=== PATIENT | female | born 1975 | race Asian ===

== ENCOUNTER 2016-09-14 17:03 | Emergency (ER) | payer MEDICAID ==
[~2016-09-14] VITALS: Ht 167.6 cm; Wt 68.0 kg
[2016-09-14] MEDS ORDERED: NKM (17:12)
[2016-09-14] MEDS ORDERED: TdaP Vaccine 0.5ml Syr IM ONE (17:15)
[2016-09-14] MEDS ORDERED: Bacitracin Oint UD TOPIC ONE (17:30)
[2016-09-14] MEDS ORDERED: Lidocaine 1% MPF 10mg/ml 5ml INJ ONE (17:30)
[2016-09-14] MEDS ORDERED: IBUPROFEN600 MG ORAL (18:06)
[2016-09-14] MEDS ORDERED: BACITRACIN1 APPLIC TOPIC (18:06)
[2016-09-14 18:19] VITALS: BP 131/77
--- NOTE | 2016-09-14 22:02 | Emergency Room Report ---
History of Present Illness General Chief Complaint: Laceration Source: Patient Present Illness HPI The patient is a 40-year-old female presenting with a laceration to the left hand which she sustained today while cutting plastic bags at home. The patient states that the knife slipped and entered the left hand around the index finger. The pain is described as a 10/10 dull/throbbing at the laceration site. Pt also reports numbness of the index and middle finger. Pt cleaned out wound at home with water. Pt unsure of last tetanus shot. Pt denies N, V, F, chills, any other symptoms. Allergies: Coded Allergies: No Known Allergies (Unverified , 09/14/16) Patient History Past Medical History: see triage record Pertinent Family History: none Last Menstrual Period: 08/30/2016 Now: No : 3 Para: 3 Reviewed Nursing Documentation: PMH: Agreed, PSxH: Agreed Nursing Documentation-PMH Past Medical History: No Stated History Review of Systems All Other Systems: negative except mentioned in HPI Physical Exam Vital Signs Date Time Temp Pulse Resp B/P Pulse Ox O2 Delivery O2 Flow Rate FiO2 09/14/16 17:07 98.2 10 20 135/82 96 Room Air Sp02 EP Interpretation: reviewed, normal General Appearance: no apparent distress, alert, GCS 15, non-toxic Head: normocephalic, atraumatic Eyes: bilateral eye PERRL, bilateral eye normal inspection ENT: hearing grossly normal, normal pharynx, no angioedema, normal voice Neck: full range of motion, supple/symm/no masses Musculoskeletal: back normal, digits/nails normal, gait/station normal, normal range of motion, tender - TTP over the L lateral hand inferior to 2nd MCP joint Neurologic: alert, oriented x3, responsive, motor strength/tone normal, sensory intact, normal gait, speech normal Psychiatric: judgement/insight normal, memory normal, mood/affect normal, no suicidal/homicidal ideation Skin: well hydrated, laceration - 2cm laceration to L hand inferior to 2nd MCPJ. No bleeding. Lymphatic: no adenopathy Procedures Laceration/Wound Repair Laceration/Wound Repair : Consent: Verbal Wound Location: upper extremity Wound's Depth, Shape: superficial Wound Length (cm): 2 Wound Explored: clean Irrigated w/ Saline (ccs): 200 Betadine Prep?: Yes Anesthesia: 1% Lidocaine Volume Anesthetic (ccs): 3 Wound Debrided: minimal Wound Repaired With: sutures Suture Size/Type: 5:0, proline Number of Sutures: 3 Sterile Dressing Applied?: Yes Splint Applied?: No Sling Applied?: No Patient Tolerated: Well Complications: None Medical Decision Making PA Attestation Dr. horton is my supervising physician. Patient management was discussed with my supervising physician Diagnostic Impression: Primary Impression: Laceration ER Course The patient is a 40-year-old female presenting with a laceration to the left hand which she sustained today while cutting plastic bags at home Ddx considered include but not limited to fracture, tendon/ligament injury, avulsion, nerve damage PE: Vitals WNL. NAD. TTP over the L lateral hand inferior to 2nd MCP joint. 2cm linear. Superficial. No bleeding. Full AROM of wrist and fingers. Decreased sensation to 2nd and 3rd digit. The wound was irrigated with normal saline and cleaned with betadine. A 27g needle was used to administer 3mL of lidocaine w.o epi for local anaesthesia. 3 sutures were placed with 5-0 Prolene. The wound was well approximated and the patient tolerated the procedure well. The wound was then cleaned and bacitracin was applied. A splint/sling was placed dc'ed home with prescription for motrin and bacitracin. ER precautions given and pt will return for suture removal Last Vital Signs Date Time Temp Pulse Resp B/P Pulse Ox O2 Delivery O2 Flow Rate FiO2 09/14/16 18:19 98.4 90 12 131/77 98 Room Air Status: improved Disposition: HOME, SELF-CARE Condition: Improved Scripts Bacitracin (Bacitracin Zinc) 15 Gm Oint...g. 1 APPLIC TOPIC TID, #15 GM Prov: TERSHANNENANCLEMENTINA P.A. 09/14/16 Ibuprofen* (MOTRIN*) 600 Mg Tablet 600 MG ORAL Q8H Y for For Pain, #30 TAB 0 Refills Prov: TERZIAN,CLEMENTINA P.A. 09/14/16 Referrals: NOT CHOSEN [facility]/,REFERRING (PCP) Patient Instructions: Laceration Care, Adult Additional Instructions: I discussed my findings with the patient. All questions and concerns have been answered. Treatment and medication compliance have been addressed. I advised the patient that they need to follow up with PMD in 6-7 days for wound check and suture removal. If you are unable to see PMD, return to the ED in 6-7 days. Return to ED if pain remains or worsens, you notice discharge from the wound, the wound continues to bleed, the suture/s fall out, you notice a fever or chills, or for any reason. Patient is advised to keep the wound clean and apply an antibacterial ointment. Patient verbalized understanding of discharge instructions. CLEMENTINA GARCIA Sep 14, 2016 22:02
== END 2016-09-14 18:28 | disposition home or self-care (01) ==
LOC: EMR 18:15
DX: S61.211A Laceration without foreign body of left index finger without damage to nail, initial encounter (principal); W26.0XXA Contact with knife, initial encounter; Y92.019 Unspecified place in single-family (private) house as the place of occurrence of the external cause; Z23 Encounter for immunization
CPT/HCPCS: 12001; 90471; 90715; 99284; Z7502